=== PATIENT | male | born 1980 | race Caucasian/White ===

== ENCOUNTER 2017-12-05 07:08 | Observation (INO) | payer BC ==
[2017-12-05] MEDS ORDERED: ASPIRIN 81 MG CHEWABLE TAB ONE (07:33)
--- NOTE | 2017-12-05 07:33 | CPEKG ---
Heart Rate: 51 RR Interval: 1176 P-R Interval: 100 QRSD Interval: 96 QT Interval: 388 QTC Interval: 358 P [place]: 67 QRS [place]: 75 T Wave [place]: 39 EKG Severity - BORDERLINE ECG - EKG Impression: SINUS RHYTHM EKG Impression: SHORT MD INTERVAL, ACCELERATED AV CONDUCTION Electronically Signed By: Cynthia Paiz 05-Dec-2017 15:01:43
[2017-12-05] MEDS ORDERED: ASPIRIN 81 MG CHEWABLE TAB PO ONE (07:39)
--- NOTE | 2017-12-05 07:55 | EDPHY ---
H & P Stated Complaint: chest pain l arm pain/ long flight from [place] this weekend Time Seen by Provider: 12/05/17 07:37 HPI/ROS: CHIEF COMPLAINT: Left-sided chest pain HISTORY OF PRESENT ILLNESS: 37-year-old male presents with left-sided chest pain. When he awoke this morning, he noted a vague discomfort on the left side of his chest. The pain was mild, 2/10 and localized to the left chest. The pain did not change with exertion, deep inspiration or movement. No associated symptoms and no radiation of pain. The pain is almost completely gone now. No prior similar symptoms. He recently took a prolonged plane flight from [facility] to [place]. Cardiac risk factors negative. Nonsmoker; no family history; no hypertension, diabetes or hypercholesterolemia. REVIEW OF SYSTEMS: complete 10 point ROS negative except at noted in the HPI - Personal History Current Tetanus/Diphtheria Vaccine: Yes - Medical/Surgical History Hx Asthma: No Hx Chronic Respiratory Disease: No Hx Diabetes: No Hx Cardiac Disease: No Hx Renal Disease: No Hx Cirrhosis: No Hx Alcoholism: No Hx HIV/AIDS: No Hx Splenectomy or Spleen Trauma: No Other PMH: spontaneous pneumo age 16 yr - Social History Smoking Status: Never smoked - Physical Exam Exam: General Appearance: Alert, pleasant Eyes: Pupils equal and round, no conjunctival pallor or injection ENT, Mouth: Mucous membranes moist Neck: Normal inspection Respiratory: No chest wall tenderness, Lungs are clear to auscultation Cardiovascular: Regular rate and rhythm Gastrointestinal: Abdomen is soft and nontender Neurological: A&O, nonfocal, normal gait Skin: Warm and dry, no rash Extremities: Nontender, no pedal edema Psychiatric: Mood and affect normal Constitutional: Initial Vital Signs Temperature (C) 36.5 C 12/05/17 07:10 Heart Rate 71 12/05/17 07:10 Respiratory Rate 18 12/05/17 07:10 Blood Pressure 125/81 H 12/05/17 07:10 O2 Sat (%) 95 12/05/17 07:10 O2 Delivery Mode Room Air Allergies/Adverse Reactions: No Known Allergies Allergy (Unverified 12/05/17 07:10) Home Medications: Medication Instructions Recorded Fexofenadine HCl [Magda Allergy] 60 mg PO DAILY PRN 12/05/17 Fluticasone Nasal [Flonase Nasal 1 sprays NASAL DAILY PRN 12/05/17 Home (RX)] Ibuprofen [Motrin (*)] 200 mg PO DAILY PRN 12/05/17 Loperamide HCl [Imodium 2 mg (*)] 2 mg PO PRN PRN 12/05/17 Multivitamins [Multivitamin (*)] 1 each PO Q3D 12/05/17 Medical Decision Making - Diagnostics EKG Interpretation: EKG interpreted by me reveals normal sinus rhythm, rate 51, sharp ER interval, no ST or T segment changes. Imaging Results: Imaging Impressions Chest X-Ray 12/05/17 07:51 Impression: Clear lungs. No explanation for left-sided pain. Specifically, no pneumothorax. Chest/Thorax CTA 12/05/17 08:47 Impression: 1. No evidence of thrombopulmonary embolic disease. 2. Clear lungs. No pneumothorax, rib fracture, or explanation for left-sided pain. Findings discussed with Emergency Department physician, Cynthia Paiz, on 2017 at 10:27 a.m. ED Course/Re-evaluation: This patient presents with atypical chest pain. Stat EKG reveals no evidence of ischemia or dysrhythmia. Aspirin 324 mg orally given. The chest pain has almost completely resolved on patient arrival to the emergency department. No cardiac risk factors. 0830: Troponin is elevated at 2.7. Repeat EKG is unchanged. He continues to have very mild chest discomfort, left-sided. Echocardiogram ordered and Cardiology paged. 9:00 a.m.: Consulted Dr. Scott, will review the echo and see the patient in the emergency department. Advises holding off on CT pulmonary angiogram for now in case the patient needs to go to the sugar laboratory assistant. Discussed with patient, chest pain has almost completely resolved. 10:00 a.m.-the patient was seen by Dr. Scott in the emergency department. CT pulmonary angiogram ordered. Hospitalist service was consulted for admission. 10:30 a.m.-CT pulmonary angiogram is unremarkable, read by Dr. Mohsen Ricks. Results discussed with the patient. He continues to have mild pain. Possible viral myocarditis related to recent GI illness. Will repeat trop at noon. Differential Diagnosis: Differential diagnosis includes though it is not limited to pneumonia, pneumothorax, pulmonary embolism, aortic dissection, pericarditis, acute coronary syndrome. - Data Points Laboratory Results: Laboratory Results 12/05/17 07:40 12/05/17 07:40 12/05/17 12/05/17 12/05/17 07:40 07:40 07:40 WBC RBC Hgb Hct MCV MCH MCHC RDW Plt Count MPV Neut % (Auto) Lymph % (Auto) [place]field % (Auto) Eos % (Auto) Baso % (Auto) Nucleat RBC Rel Count Absolute Neuts (auto) Absolute Lymphs (auto) Absolute Monos (auto) Absolute Eos (auto) Absolute Basos (auto) Absolute Nucleated RBC Immature Gran % Immature Gran # D-Dimer 0.61 ug/mLFEU H ug/mLFEU (0.00-0.50) Sodium 144 mEq/L mEq/L (135-145) Potassium 4.0 mEq/L mEq/L (3.5-5.2) Chloride 101 mEq/L mEq/L (97-110) Carbon Dioxide 29 mEq/l mEq/l (22-31) Anion Gap 14 mEq/L mEq/L (8-16) BUN 11 mg/dL mg/dL (7-23) Creatinine 0.8 mg/dL mg/dL (0.7-1.3) Estimated GFR > 60 Glucose 142 mg/dL H mg/dL (70-100) Calcium 8.9 mg/dL mg/dL (8.5-10.4) Troponin I 2.710 ng/mL H ng/mL (0.000-0.034) NT-Pro-B Natriuret Pep 130 pg/mL H pg/mL (0-125) 12/05/17 07:40 WBC 7.88 10^3/uL 10^3/uL (3.80-9.50) RBC 4.92 10^6/uL 10^6/uL (4.40-6.38) Hgb 14.7 g/dL g/dL (13.7-17.5) Hct 42.8 % % (40.0-51.0) MCV 87.0 fL fL (81.5-99.8) MCH 29.9 pg pg (27.9-34.1) MCHC 34.3 g/dL g/dL (32.4-36.7) RDW 11.9 % % (11.5-15.2) Plt Count 177 10^3/uL 10^3/uL (150-400) MPV 10.3 fL fL (8.7-11.7) Neut % (Auto) 64.9 % % (39.3-74.2) Lymph % (Auto) 20.8 % % (15.0-45.0) Garfield % (Auto) 10.3 % % (4.5-13.0) Eos % (Auto) 3.3 % % (0.6-7.6) Baso % (Auto) 0.6 % % (0.3-1.7) Nucleat RBC Rel Count 0.0 % % (0.0-0.2) Absolute Neuts (auto) 5.11 10^3/uL 10^3/uL (1.70-6.50) Absolute Lymphs (auto) 1.64 10^3/uL 10^3/uL (1.00-3.00) Absolute Monos (auto) 0.81 10^3/uL H 10^3/uL (0.30-0.80) Absolute Eos (auto) 0.26 10^3/uL 10^3/uL (0.03-0.40) Absolute Basos (auto) 0.05 10^3/uL 10^3/uL (0.02-0.10) Absolute Nucleated RBC 0.00 10^3/uL 10^3/uL (0-0.01) Immature Gran % 0.1 % % (0.0-1.1) Immature Gran # 0.01 10^3/uL 10^3/uL (0.00-0.10) D-Dimer Sodium Potassium Chloride Carbon Dioxide Anion Gap BUN Creatinine Estimated GFR Glucose Calcium Troponin I NT-Pro-B Natriuret Pep Medications Given: Sodium Chloride (Ns) 1,000 mls @ 125 mls/hr IV CONT SERENA Stop: 12/05/17 20:44 Last Admin: 12/05/17 13:52 Dose: 1,000 mls Discontinued Medications Aspirin (Aspirin) 324 mg PO EDNOW ONE Stop: 12/05/17 07:40 Last Admin: 12/05/17 07:40 Dose: 324 mg Sodium Chloride (Ns) 500 mls @ 1,000 mls/hr IV EDNOW ONE PRN Reason: Protocol Stop: 12/05/17 09:16 Last Admin: 12/05/17 09:01 Dose: 500 mls Departure - Departure Disposition: Home, Routine, Self-Care Clinical Impression: Elevated troponin Chest pain Qualifiers: Chest pain type: other chest pain Qualified Code(s): R07.89 - Other chest pain Condition: Good
[2017-12-05 07:58] LABS: PLATELET COUNT 177 10^3/uL (150-400)
--- NOTE | 2017-12-05 08:34 | CPEKG ---
Heart Rate: 67 RR Interval: 896 P-R Interval: 104 QRSD Interval: 90 QT Interval: 368 QTC Interval: 389 P [place]: 55 QRS [place]: 66 T Wave [place]: 29 EKG Severity - BORDERLINE ECG - EKG Impression: SINUS RHYTHM EKG Impression: SHORT [place] INTERVAL, ACCELERATED AV CONDUCTION Electronically Signed By: Cynthia Paiz 05-Dec-2017 15:01:33
[2017-12-05] MEDS ORDERED: NS 500 ML IV ONE (08:47)
[2017-12-05] MEDS ORDERED: IOPAMIDOL (ISOVUE 370) 100 ML BTL IV ONE (08:58)
--- NOTE | 2017-12-05 10:03 | ECHO ---
[email or web address] [address] Main: [phone] Fax: Transthoracic Echocardiogram Name: ANTONIA BUNDY MR#: [id number] Study Date: 12/05/2017 Study Time: 08:49 AM Date of : 1980 Age: 37 year(s) Height: 177.8 cm (70 in.) Weight: 63.5 kg (140 lb.) BSA: 1.79 m2 Gender: Male Examination: Echo Indication: Image Quality: Contrast: Requested by: Cynthia Paiz BP: 120 mmHg/82 mmHg Heart Rate: Rhythm: Indication: Procedure Staff Corn Detasseler: Kandace Zuleta [facility] Reading Physician: Paul Scott MD Requesting Provider: Conclusions: Normal size left ventricle. No LV hypertrophy. Normal global systolic LV function. EF is 57 %. Mild mitral valve regurgitation is present. The aortic valve is normal in appearance and function. The tricuspid valve is normal in appearance and function. Mild tricuspid regurgitation is present. Right ventricular systolic pressure measures 28mmHg. There is no pulmonic regurgitation seen. Normal size ascending aorta measuring 2.3 cm. No pericardial effusion. Measurements: Chambers Valvular Assessment AV/MV Valvular Assessment TV/PV Normal Normal Normal Name Value Range Name Value Range Name Value Range Ao Rosemary (2D): 2.8 cm (1.4 cm-2.6 AV meanP mmHg ( - ) TR Vmax: 2.42 mm/s ( - ) cm) PENELOPE (VTI): 2.3 cm ( - ) TR PGmax: 23 mmHg ( - ) IVSd (2D): 0.8 cm (0.6 cm-1.1 MV E Vmax: 0.65 m/s ( - ) syst. PAP: 28 mmHg ( - ) cm) MV A Vmax: 0.48 m/s ( - ) PV Vmax: 0.77 m/s (0.6 m/s-0.9 LVDd (2D): 5.2 cm (4.2 cm-5.9 MV E/A: 1.35 ( - ) m/s) cm) MV PHT: 0.058 s ( - ) PV PGmax: 2 mmHg ( - ) LVDs (2D): 3.8 cm (2.1 cm-4 cm) MVA (PHT): 3.8 s ( - ) LVPWd (2D): 0.8 cm (0.6 cm-1 cm) LVOTd 2.1 cm 2.1 cm mm LVEF (BP): 57 % (>=55 %) RVDd(2D): 2.3 cm (1.9 cm-3.8 cmmm) Patient: ANTONIA BUNDY Study Date: 12/05/2017 Page 1 of 2 08:49 AM Continued Measurements: Chambers Valvular Assessment AV/MV Valvular Assessment TV/PV Name Value Name Value Name Value LADs: 3.0 cm MV DecTime: 215 m/s CVP (est.): 5 mmHg LADs Lon.3 cm MV E' Septal: 0.13 m/s LA Area: 18.1 cm2 MV E/E' Septal: 5.10 LA Volume: 55 ml MV E/E' Lateral: 4.60 LA Volume Index: 30.7 ml/m2 RA Area: 14.0 cm2 Additional Vessels Name Value Ao Ascendin.3 cm Inferior Vena Cava: 2.0 cm Findings: Left Ventricle: Normal size left ventricle. No LV hypertrophy. Normal global systolic LV function. EF is 57 %. No regional wall motion abnormality. Normal diastolic LV function. Right Ventricle: Normal size right ventricle. Normal RV function. Left Atrium: The left atrium is normal in size. Right Atrium: The right atrium is normal in size. Mitral Valve: The mitral valve is normal in appearance and function. Mild mitral valve regurgitation is present. No mitral stenosis is present. Aortic Valve: The aortic valve is normal in appearance and function. There is no aortic valve regurgitation. No aortic valve stenosis is present. Tricuspid Valve: The tricuspid valve is normal in appearance and function. Mild tricuspid regurgitation is present. The pulmonary artery pressure is normal. Right ventricular systolic pressure measures 28mmHg. Pulmonic Valve: The pulmonic valve is normal in appearance and function. There is no pulmonic regurgitation seen. Aorta: The aorta is normal. Normal size aortic root measuring 2.8 cm. Normal size ascending aorta measuring 2.3 cm. IVC: The IVC is normal sized. Pericardium: No pericardial effusion. No pleural effusion. (No Signature Object) Patient: ANTONIA BUNDY Study Date: 12/05/2017 Page 2 of 2 08:49 AM [id number]
[2017-12-05] MEDS ORDERED: ONDANSETRON DISINTEGRATING 4 MG TAB PO PRN (10:13)
[2017-12-05] MEDS ORDERED: ACETAMINOPHEN 325 MG TAB PO PRN (10:13)
[2017-12-05] MEDS ORDERED: ONDANSETRON 4 MG/2 ML VIAL IVP PRN (10:13)
--- NOTE | 2017-12-05 11:19 | PDCARCONS ---
Cardiology Consult Reason for Consult: Chest pains with left arm discomfort Chief Complaint: Chest pain with associated left arm discomfort Requesting Physician: ER physician History of Present Illness: Patient is a 37 y/o male with unremarkable past medical history (no HTN, HLP, CAD, or DM), who presented to [facility] ER with complaints of chest discomfort. Discomfort was a pain, and localized to the left sternal border. There was radiation of the discomfort into the left arm and axillary region. Severity of the discomfort was 2/10. Possible, mild dyspnea. In days prior, the patient has had some abdominal pains and diarrhea (no nausea or emesis). In the ER, ECG without ST/T wave changes, but cardiac biomarkers were noted to be elevated (troponin >2). Furthermore, mild elevation to d-dimer was appreciated, and the patient just returned from [facility] not 2 days prior (11 hour flight). Questionable "food poisoning" with some low grade fevers, myalgias, and diarrhea. Today, non of the GI issues were noted. Chest pains were noted shortly after awakening this morning. No premature family history for CAD remainder of the 12 point review of systems was unremarkable History Information - Allergies/Home Medication List Allergies/Adverse Reactions: No Known Allergies Allergy (Unverified 12/05/17 07:10) Home Medications: Fexofenadine HCl [Magda Allergy] 60 mg PO DAILY PRN 12/05/17 [Last Taken Unknown] Fluticasone Nasal [Flonase Nasal [place] (RX)] 1 sprays NASAL DAILY PRN 12/05/17 [ Last Taken Unknown] Ibuprofen [Motrin (*)] 200 mg PO DAILY PRN 12/05/17 [Last Taken 12/03/17] Loperamide HCl [Imodium 2 mg (*)] 2 mg PO PRN PRN 12/05/17 [Last Taken 12/04/17] Multivitamins [Multivitamin (*)] 1 each PO Q3D 12/05/17 [Last Taken 12/04/17] I have personally reviewed and updated: family history, medical history, social history, surgical history Past Medical History: - Past Medical History no pertinent PMH - Surgical History Reports: no pertinent surgical hx - Family History Positive for: non-pertinent - Social History Smoking Status: Never smoked Alcohol Use: Rarely Drug Use: None Cardiac History - Cardiac History Cardiac Risk Factors: male Timing/Duration: Hours Severity: mild Severity Scale: 2 Location: substernal, shoulder Activities at Onset: none Modifying Factors: improves with: rest Physical Exam Physical Exam: Temp Pulse Resp BP Pulse Ox 37 C 59 L 19 111/76 96 12/05/17 09:30 12/05/17 09:39 12/05/17 09:39 12/05/17 09:39 12/05/17 09:39 Constitutional: no apparent distress, appears nourished, not in pain Eyes: PERRL Ears, Nose, Mouth, Throat: moist mucous membranes Cardiovascular: regular rate and rhythym, no murmur, rub, or gallop, pulses symmetric bilaterally, No JVD Peripheral Pulses: 2+: dorsalis-pedis (R), dorsalis-pedis (L) Respiratory: no respiratory distress, no rales or rhonchi, clear to auscultation Gastrointestinal: normoactive bowel sounds Skin: warm Musculoskeletal: full muscle strength, no muscle tenderness, normal joint ROM Neurologic: AAOx3, sensation intact bilaterally, CN II-XII Intact Psychiatric: interacting appropriately, not anxious, not encephalopathic Lab and Imaging 12/05/17 07:40 12/05/17 07:40 WBC 7.88 10^3/uL (3.80-9.50) 12/05/17 07:40 RBC 4.92 10^6/uL (4.40-6.38) 12/05/17 07:40 Hgb 14.7 g/dL (13.7-17.5) 12/05/17 07:40 Hct 42.8 % (40.0-51.0) 12/05/17 07:40 MCV 87.0 fL (81.5-99.8) 12/05/17 07:40 MCH 29.9 pg (27.9-34.1) 12/05/17 07:40 MCHC 34.3 g/dL (32.4-36.7) 12/05/17 07:40 RDW 11.9 % (11.5-15.2) 12/05/17 07:40 Plt Count 177 10^3/uL (150-400) 12/05/17 07:40 MPV 10.3 fL (8.7-11.7) 12/05/17 07:40 Neut % (Auto) 64.9 % (39.3-74.2) 12/05/17 07:40 Lymph % (Auto) 20.8 % (15.0-45.0) 12/05/17 07:40 [place] % (Auto) 10.3 % (4.5-13.0) 12/05/17 07:40 Eos % (Auto) 3.3 % (0.6-7.6) 12/05/17 07:40 Baso % (Auto) 0.6 % (0.3-1.7) 12/05/17 07:40 Nucleat RBC Rel Count 0.0 % (0.0-0.2) 12/05/17 07:40 Absolute Neuts (auto) 5.11 10^3/uL (1.70-6.50) 12/05/17 07:40 Absolute Lymphs (auto) 1.64 10^3/uL (1.00-3.00) 12/05/17 07:40 Absolute Monos (auto) 0.81 10^3/uL (0.30-0.80) H 12/05/17 07:40 Absolute Eos (auto) 0.26 10^3/uL (0.03-0.40) 12/05/17 07:40 Absolute Basos (auto) 0.05 10^3/uL (0.02-0.10) 12/05/17 07:40 Absolute Nucleated RBC 0.00 10^3/uL (0-0.01) 12/05/17 07:40 Immature Gran % 0.1 % (0.0-1.1) 12/05/17 07:40 Immature Gran # 0.01 10^3/uL (0.00-0.10) 12/05/17 07:40 D-Dimer 0.61 ug/mLFEU (0.00-0.50) H 12/05/17 07:40 Sodium 144 mEq/L (135-145) 12/05/17 07:40 Potassium 4.0 mEq/L (3.5-5.2) 12/05/17 07:40 Chloride 101 mEq/L (97-110) 12/05/17 07:40 Carbon Dioxide 29 mEq/l (22-31) 12/05/17 07:40 Anion Gap 14 mEq/L (8-16) 12/05/17 07:40 BUN 11 mg/dL (7-23) 12/05/17 07:40 Creatinine 0.8 mg/dL (0.7-1.3) 12/05/17 07:40 Estimated GFR > 60 12/05/17 07:40 Glucose 142 mg/dL (70-100) H 12/05/17 07:40 Calcium 8.9 mg/dL (8.5-10.4) 12/05/17 07:40 Troponin I 2.710 ng/mL (0.000-0.034) H 12/05/17 07:40 NT-Pro-B Natriuret Pep 130 pg/mL (0-125) H 12/05/17 07:40 Visualized and Interpreted Chest x-ray results: Yes Chest X-ray Interpretation: no infiltrate, normal Visualized and Interpreted imaging results: Yes EKG Interpretation: Positive for: normal sinsus rhythm Echocardiogram: normal LVEF, normal wall motion, no gross valve pathology A/P Assessment: Uncertain etiology for the symptoms that were noted as well as the elevation to troponin. Given the history (long flight) and the vague symptoms noted, would pursue CT to rule out pulmonary embolism (no tachycardia, no hypoxia, no RV chamber dilation). Would follow serial cardiac biomarkers. Consider flu swab ( patient said he felt like he might have the flu). Patient also planning on calling brother (lives in [facility] and ate similar "unusual" foods one night with patient). Plan: At present, further cardiovascular testing is not indicated (outside of the aforementioned serial cardiac biomarker assessment). We will continue to follow this patient over course of the day.
[2017-12-05] MEDS ORDERED: FLUTICASONE NASAL 120 SPRAYS/16 GM MDI EACHNARE PRN (11:42)
[2017-12-05] MEDS ORDERED: NS 1,000 ML IV SCH (12:45)
--- NOTE | 2017-12-05 15:40 | GHP ---
[f rep st] HISTORY AND PHYSICAL DATE OF ADMISSION: 12/05/2017 CHIEF COMPLAINT: Chest pain, NSTEMI. HISTORY OF PRESENT ILLNESS: A 37-year-old gentleman with history of allergies, and a spontaneous pneumothorax when he was younger, presenting with chest discomfort. He was recently visiting his brother in [facility], for the past 9 days and returned on Sunday. The last night there he felt sick, developed fevers and had diarrhea. He felt hot with intermittent chills and sweats. He felt achy all over. He has a chronic cough due to allergies. No new sputum production. Still had similar symptoms Sunday night, but felt better yesterday. He went to work without issue. He woke this morning sweaty and noted a dull pain in his left arm and shoulder that lasted an hour. It went away for a bit, but is now present in the ER. He denies any shortness of breath , pillow orthopnea or lower extremity edema. Denies illicit drugs. He does not work out at the gym, but does take long walks without chest pain or shortness of breath. He did eat a lot of unusual foods in [place] and drank more than he normally does , had a lot of sake. In the emergency room, troponin was elevated at 2.7, and Cardiology was consulted. REVIEW OF SYSTEMS: I completed a 10-point review of systems, negative except as noted in HPI. PAST MEDICAL HISTORY: Seasonal allergies, spontaneous pneumothorax as a teenager. PAST SURGICAL HISTORY: None. FAMILY HISTORY: No strokes or MIs. SOCIAL HISTORY: Lives in [place] with his . Drinks a couple glasses of wine nightly. Denies tobacco or illicits. HOME MEDICATIONS: Ibuprofen as needed, Flonase, multivitamin, loperamide, Magda. ALLERGIES: None. PHYSICAL EXAMINATION: VITAL SIGNS: Temperature 36.6, blood pressure 115/71, heart rates in the 60s, respiration 15, 91% on room air. GENERAL: He is a thin male, sitting up in bed, in no acute distress. HEENT: PERRLA. EOMI. Oropharynx clear. CV: Regular rate and rhythm. No murmurs, gallops, or rubs. No lower extremity edema. No reproducible chest pain. LUNGS: Clear. ABDOMEN: Soft, nontender, nondistended. Positive bowel sounds. : No Daniels. MUSCULOSKELETAL: 5/5 upper and lower extremity strength. SKIN: Has a couple blisters on his toes, but these are healed. No sign of infection. NEURO: 2 through 12 intact. PSYCH: Alert and oriented x3. LABS: WBC 7, hemoglobin 14, hematocrit 42, platelets 177. D-dimer is 0.61. Sodium 141, potassium 4.0, chloride 101, carbon dioxide, creatinine 0.8, glucose 142, calcium 8.9. Troponin 2.7, repeat is 6.29. BNP is 130. CTA is negative for PE. No evidence of pneumothorax or infection. Echocardiogram: Normal global systolic function. EF is 57%. RVSP is 28 mmHg. No pericardial effusion. EKG personally reviewed by me, normal sinus rhythm. No ST depression or elevation. ASSESSMENT AND PLAN: 1. Non-ST elevation myocardial infarction: Differential includes acute coronary syndrome, pulmonary embolism, myocarditis, or drug use. Dr. Scott with Cardiology evaluated the patient. He has a normal EKG and echocardiogram. No pulmonary embolus on CT. Suspect myocarditis with acute illness. Respiratory and GI PCR are pending. Supportive treatment with IV fluids, p.r.n. NSAIDs. We will monitor in the PCU on telemetry. No further cardiac testing warranted now. We will continue serial troponin. 2. Seasonal allergies. Resume home medications. 3. History of spontaneous pneumothorax: This is interesting as patient does have a slender habitus that can be seen with Marfan and spontaneous pneumothorax. No evidence of pneumothorax now. 4. Diet: Regular. 5. Deep vein thrombosis prophylaxis: Ambulating, low risk. DISPOSITION: Patient warrants observation admission to PCU on telemetry and serial enzymes. Critical care time spent 45 min bedside examining pt, reviewing imaging/EKG and discussing with Dr. Scott. /[id number]/MODL MTDD
[2017-12-05] MEDS: IBUPROFEN 600 MG TAB PO PRN (23:23)
[2017-12-06] MEDS: IBUPROFEN 600 MG TAB PO PRN (09:06)
[2017-12-06 11:40] VITALS: BP 119/76
--- NOTE | 2017-12-06 13:29 | ASMTCASEMG ---
Living Arrangements What is your living Answers: With Spouse arrangement? Who do you live with? Type Of Residence What kind of residence do Answers: House you live in? Discharge Plan Comments Coordination Status Comments Notes: Pts case discussed in morning rounds. Pt is a 37 y/o man admitted for chest pain. Pt will most likely d/c independent when medically stable. No therapies ordered at this time. CM available for changes. Plan: Independent Date Signed: 12/06/2017 01:28 PM Electronically Signed By:JOANIE Cooney
--- NOTE | 2017-12-06 14:56 | SOAPPROG ---
SOAP Progress Note Assessment/Plan: Assessment/Plan: This is a 37 yr old male with myocarditis, NSVT Myocarditis: Ibuprofen 400mg po tid. (not prn) NSVT: Discussed risks and benefit of various option antiarrhythmics vs VEST vs observation. Metoprolol 25mg po bid. is an option. Explained risks and benefits. 12/06/17 14:38 Subjective: Pt had palpitation. Chest pain resolved. Objective: Vital Signs Temp Pulse Resp BP Pulse Ox 36.4 C 70 16 119/76 95 12/06/17 11:39 12/06/17 11:39 12/06/17 11:39 12/06/17 11:39 12/06/17 11:39 Microbiology 12/05/17 15:58 Gastrointestinal Tract Panel (PCR) - Final Stool Campylobacter Species 12/05/17 15:00 Respiratory Panel (PCR) - Final Nasal, Sinus - Swab No Organism Detected 12/05/17 12/06/17 12/07/17 05:59 05:59 05:59 Intake Total 2600 Output Total 500 Balance 2100 Physical Exam - Physical Exam General Appearance: alert, no apparent distress EENT: PERRL/EOMI, normal ENT inspection, pharynx normal Neck: non-tender, full range of motion, supple Respiratory: lungs clear, normal breath sounds, No rales, No rhonchi Cardiac/Chest: regular rate, rhythm, No edema ICD10 Worksheet Patient Problems: Problems Problem Status Onset Chest pain Acute Elevated troponin Acute
--- NOTE | 2017-12-06 15:25 | GDS ---
[f rep st] DISCHARGE SUMMARY DIAGNOSES: 1. Myocarditis. 2. Non-sustained ventricular tachycardia. 3. Chest pain. HOSPITAL COURSE: A 37-year-old man admitted with chest pain. Notably, [place] illness. He had a pathogen panel which was positive for Campylobacter. He subsequently developed chest pain. His troponin was found to be elevated, it peaked at 6.2. It h as down-trended from there. He has been seen by Cardiology. Feel that this is most likely consisten t with myocarditis. His pain is markedly improved with ibuprofen. He had a short run of NSVT as wel l. RECOMMENDATIONS: Take ibuprofen 400 mg p.o. three times daily, tapering slowly. Follow up with Card iology in 2-4 weeks. Discussed risks and benefits of all treatment for NSVT. This includes doing no thing, metoprolol, LifeVest. The patient and his would like to opt for metoprolol at this point . I have given them a prescription for 25 mg p.o. twice daily. He has been given warnings for side effects of this. Recommended that he take Protonix while on high-dose NSAIDs. /[id number]/MODL
== END 2017-12-06 15:53 | disposition home or self-care (01) ==
LOC: F2W 13:07
PROVIDERS: ADMIT Internal Medicine; ATTEND Student in an Organized Health Care Education/Training Program
DX: I51.4 Myocarditis, unspecified (principal); I47.2 Ventricular tachycardia; A04.5 Campylobacter enteritis; R07.9 Chest pain, unspecified; E86.9 Volume depletion, unspecified; R79.89 Other specified abnormal findings of blood chemistry
CPT/HCPCS: 71046; 71275; 93005; 93306; 96360; 99285; G0378; 80307; G0480; Q9967